=== PATIENT | female | born 1960 | race Caucasian/White ===

== ENCOUNTER 2020-12-09 07:55 | Outpatient (CLI) | payer BC | END 2020-12-09 07:56 | disposition home or self-care (01) | LOC: BICULT 07:55 | PROVIDERS: ATTEND Specialist | DX: R10.11 Right upper quadrant pain (principal); K82.4 Cholesterolosis of gallbladder | CPT/HCPCS: 76705 ==

== ENCOUNTER 2021-12-28 08:51 | Day surgery (SDC) | payer BC ==
[2021-12-28] MEDS ORDERED: Acetaminophen 500 MG TAB ONE (09:59)
[2021-12-28] MEDS ORDERED: Scopolamine 1.5 mg/72 hour Patch ONE (09:59)
[2021-12-28] MEDS ORDERED: Ondansetron PF 4 MG/2 ML Vial ONE ×2 (09:59→11:12)
[2021-12-28] MEDS ORDERED: Ketorolac Tromethamine 30 MG/ML VIAL ONE (09:59)
[2021-12-28 10:35] LABS: SARS-CoV-2 NAA Rapid Test Not Detected (NotDetected)
[2021-12-28] MEDS ORDERED: Bupivacaine PF 0.5% 30 ML VIAL ONE (10:38)
[2021-12-28] MEDS ORDERED: Lidocaine 1% w/Epinephrine 1:100K 20 ML VIAL ONE (10:38)
[2021-12-28 10:55] LABS: #Lymphocytes 1.8 thou/uL (1.20-3.40); #Monocytes 0.6 thou/uL (0.11-0.59); #Neutrophils 6.7 thou/uL (1.40-6.50); %Basophils 0.4 % (0.0-1.0); %Eosinophils 0.3 % (0.0-10.0); %Neutrophils 73.4 % (42.0-75.0); Hemoglobin 13.1 g/dL (12.0-16.0); Mean Corpuscular HGB CONC 32.8 g/dL (32.0-36.0); Mean Corpuscular Hemoglobin 32.5 pg (27.0-31.0); Mean Corpuscular Volume 98.9 fL (78.0-98.0); Mean Platelet Volume 7.5 fL (7.4-10.4); Platelet Count 212 thou/uL (130-400); RBC Distribution Width 10.9 % (11.5-14.5); Red Blood Cell (RBC) Count 4.04 mill/uL (4.20-5.40); White Blood Cell (WBC) Count 9.1 thou/uL (4.8-10.8)
[2021-12-28] MEDS ORDERED: cefOXitin 2 GM VIAL ONE (11:00)
[2021-12-28] MEDS ORDERED: Sodium Chloride 0.9% 100 ML ONE (11:00)
[2021-12-28] MEDS ORDERED: SUGAMMADEX SODIUM 200 MG/2 ML VIAL ONE (11:02)
[2021-12-28] MEDS ORDERED: fentaNYL Citrate/PF 100 MCG/2 ML SYRINGE ONE (11:02)
[2021-12-28] MEDS ORDERED: Rocuronium Bromide 10 MG/ML (10ML VIAL) ONE (11:12)
[2021-12-28] MEDS ORDERED: Dexamethasone 20 MG/5 ML VIAL ONE (11:12)
[2021-12-28] MEDS ORDERED: PROPOFOL 200 MG/20 ML VIAL ONE (11:12)
[2021-12-28] MEDS ORDERED: Lidocaine 1% PF 5 ML VIAL ONE (11:12)
[2021-12-28] MEDS ORDERED: PHENYLEPHRINE-NS 100 MCG/ML 10 ML SYRINGE ONE (11:12)
[2021-12-28] MEDS ORDERED: ePHEDrine 50 MG/ML VIAL ONE (11:12)
[2021-12-28] MEDS ORDERED: Succinylcholine 200 MG/10 ml SYRINGE FS ONE (11:12)
[2021-12-28 11:21] LABS: ALT (SGPT) 14 U/L (8-55); AST (SGOT) 16 U/L (5-34); Albumin 4.3 g/dL (3.4-4.8); Alkaline Phosphatase 48 U/L (40-110); Anion Gap 15 mmol/L (10-20); BUN (Urea Nitrogen) 9 mg/dL (9.8-20.1); Bilirubin, Total 1.2 mg/dL (0.2-1.2); Calc. Creatinine Clearance 0 mL/min (70-130); Calcium 9.3 mg/dL (7.8-10.44); Carbon Dioxide 23 mmol/L (23-31); Chloride 104 mmol/L (98-107); Globulin 2.8 g/dL (2.4-3.5); Glucose 102 mg/dL (80-115); Potassium 3.8 mmol/L (3.5-5.1); Protein, Total 7.1 g/dL (5.8-8.1); Sodium 138 mmol/L (136-145)
== END 2021-12-28 13:30 | disposition home or self-care (01) ==
LOC: SDC 08:51
PROVIDERS: ATTEND Specialist
PROC: 0DTJ4ZZ Resection of Appendix, Percutaneous Endoscopic Approach (ICD-10-PCS; principal; 2021-12-28)
DX: K35.80 Unspecified acute appendicitis (principal); Z87.891 Personal history of nicotine dependence; Z79.890 Hormone replacement therapy; Z79.899 Other long term (current) drug therapy; Z20.822 Contact with and (suspected) exposure to COVID-19
CPT/HCPCS: 80053; 85025; 88304; 93005; 93010; A4649; J0694; J1100; J1885; J2405; J2704; J3490; S0020; U0002